=== PATIENT | female | born 1970 | race Hispanic/Latino ===

== ENCOUNTER 2017-12-22 08:53 | Emergency (ER) | payer OTHER ==
[2017-12-22 09:09] VITALS: RESP 18; TEMP 98.1
[2017-12-22 09:29] LABS: BASO # 0.1 K/uL (0.0-0.2); BASO % 1.3 % (0.0-2.0); EOS # 0.4 K/uL (0.0-0.7); EOS % 4.9 % (0.0-4.0); LYMPH # 3.5 K/uL (1.0-4.3); LYMPH % 39.3 % (20.0-40.0); MEAN CELL VOLUME 91.5 fL (81.0-99.0); MEAN CORPUSCULAR HEMOGLOBIN 31.5 pg (27.0-31.0); MEAN CORPUSCULAR HGB CONC 34.4 g/dL (33.0-37.0); MEAN PLATELET VOLUME 8.3 fL (7.2-11.7); MONO # 0.5 K/uL (0.0-0.8); MONO % 5.6 % (0.0-10.0); NEUT # 4.4 K/uL (1.8-7.0); NEUT % 48.9 % (50.0-75.0); RBC 4.45 Mil/uL (3.80-5.20); WHITE BLOOD COUNT 8.9 K/uL (4.8-10.8)
[2017-12-22 09:31] LABS: HCG,QUALITATIVE URINE NEGATIVE (NEGATIVE)
[2017-12-22 09:38] LABS: SQUAMOUS EPITHIAL 1 /hpf (0-5); URINE BACTERIA RARE (<OCC); URINE BILIRUBIN NEGATIVE (NEGATIVE); URINE BLOOD NEGATIVE (NEGATIVE); URINE CLARITY Clear (Clear); URINE COLOR Yellow (YELLOW); URINE GLUCOSE (UA) NORMAL (Normal); URINE LEUKOCYTE ESTERASE 1+ Leu/uL (Negative); URINE PROTEIN NEGATIVE (NEGATIVE); URINE UROBILINOGEN NORMAL mg/dL (0.2-1.0)
[2017-12-22 09:46] LABS: ALB/GLOB RATIO 1.5 (1.0-2.1); ALBUMIN 4.6 g/dL (3.5-5.0); ALT/SGPT 106 U/L (9-52); AST/SGOT 71 U/L (14-36); BLOOD UREA NITROGEN 19 mg/dL (7-17); CALCIUM 9.7 mg/dl (8.6-10.4); GFR AFRICAN-AMERICAN > 60; GFR NON-AFRICAN AMERICAN > 60; HDL CHOLESTEROL 47 mg/dL (30-70)
--- NOTE | 2017-12-22 09:50 | RAD ---
Date of service: 12/22/2017 PROCEDURE: CHEST RADIOGRAPH, 1 VIEW HISTORY: hypertension COMPARISON: None available. FINDINGS: LUNGS: No acute pulmonary disease appreciated bilaterally. PLEURA: No pneumothorax or pleural fluid seen. CARDIOVASCULAR: Normal. OSSEOUS STRUCTURES: No significant abnormalities. VISUALIZED UPPER ABDOMEN: Normal. OTHER FINDINGS: None. IMPRESSION: No acute cardiopulmonary disease appreciated.
[2017-12-22 09:56] LABS: CK-MB 0.57 ng/mL (0.0-3.38)
[2017-12-22 09:57] LABS: LDL CHOLESTEROL 181 mg/dL (0-129)
--- NOTE | 2017-12-22 10:21 | C.PDOC ---
History Of Present Illness 47 y/o female, overnight nurse in ER, presents to the ER for evaluation of elevated blood pressure. Patient states that she went for a routine visit to her PMD, 's office today and she was found to have systolic pressure over 200. advised her to go the ER. Patient reports that her blood pressure was elevated during her previous visits to 's office. Dr. Marks had prescribed her Lisinopril. However, she stopped taking the medication because it made her blood pressure levels too low. Currently, patient denies having active physical complaints. Time Seen by Provider: 12/22/17 08:54 Chief Complaint (Nursing): High Blood Pressure History Per: Patient History/Exam Limitations: no limitations Onset/Duration Of Symptoms: Hrs Current Symptoms Are (Timing): Still Present Severity: Moderate Past Medical History Reviewed: Historical Data, Nursing Documentation, Vital Signs Vital Signs: Last Vital Signs Temp 98.1 F 12/22/17 08:59 Pulse 65 12/22/17 11:03 Resp 18 12/22/17 11:03 BP 165/100 H 12/22/17 11:03 Pulse Ox 99 12/22/17 11:27 - Medical History PMH: Migraine Surgical History: No Surg Hx Family History: States: No Known Family Hx - Social History Hx Tobacco Use: Yes Hx Alcohol Use: Yes Hx Substance Use: No - Immunization History Hx Tetanus Toxoid Vaccination: Yes Physical Exam - Physical Exam Appears: Non-toxic, No Acute Distress Skin: Normal Color, Warm, Dry Head: Atraumatic, Normacephalic Eye(s): bilateral: Normal Inspection Nose: Normal Oral Mucosa: Moist Neck: Supple Chest: Symmetrical Cardiovascular: Rhythm Regular Respiratory: Normal Breath Sounds, No Rales, No Rhonchi, No Wheezing Gastrointestinal/Abdominal: Normal Exam, Soft, No Tenderness, No Guarding, No Rebound Neurological/Psych: Oriented x3, Normal Speech ED Course And Treatment - Laboratory Results Result Diagrams: 12/22/17 09:24 12/22/17 09:24 ECG: Interpreted By Me, Viewed By Me ECG Rhythm: Sinus Rhythm Interpretation Of ECG: NSR with normal axises and [address] depressions in Leads I , II, avF, V5, and V6 Rate From EC O2 Sat by Pulse Oximetry: 99 (RA) Pulse Ox Interpretation: Normal - Radiology CXR: Interpreted by Me, Viewed By Me CXR Interpretation: Yes: No Acute Disease Progress Note: Labs,UA, ECG, and CXR ordered. Disposition Counseled Patient/Family Regarding: Diagnosis, Need For Followup, Rx Given - Disposition Referrals: Gisselle Marks MD [Staff Provider] - Disposition: HOME/ ROUTINE Disposition Time: 10:55 Condition: STABLE Additional Instructions: FOLLOW UP WITH DR MARKS IN 1-2 DAYS USE MEDICATIONS DIRECTED RETURN TO ER IF YOU HAVE ANY CONCERNING SYMPTOMS Prescriptions: Carvedilol [Coreg] 3.125 mg PO BID #60 tab Instructions: High Blood Pressure (DC) Forms: [email or web address] ([employer]) Print Language: MAORI - Clinical Impression Clinical Impression: Hypertension, EKG, abnormal - Scribe Statement The provider has reviewed the documentation as recorded by the Lenoraibjag Concepcion Provider Attestation: All medical record entries made by the Scribe were at my direction and personally dictated by me. I have reviewed the chart and agree that the record accurately reflects my personal performance of the history, physical exam, medical decision making, and the department course for this patient. I have also personally directed, reviewed, and agree with the discharge instructions and disposition.
[2017-12-22 11:04] VITALS: BP 165/100; PULSE 65
[2017-12-22 11:24] VITALS: O2SAT 99
== END 2017-12-22 11:03 | disposition home or self-care (01) ==
LOC: C.ER 08:53
DX: I10 Essential (primary) hypertension (principal); R94.31 Abnormal electrocardiogram [ECG] [EKG]

== ENCOUNTER 2018-05-27 07:59 | Outpatient (CLI) | payer OTHER | END 2018-05-27 08:00 | disposition home or self-care (01) | LOC: C.MRIC 07:59 ==

== ENCOUNTER 2018-06-24 12:23 | Outpatient (CLI) | payer OTHER | END 2018-06-24 12:24 | disposition home or self-care (01) | LOC: C.RADH 12:23 ==

== ENCOUNTER 2018-06-24 12:30 | Outpatient (CLI) | payer OTHER | END 2018-06-24 12:31 | disposition home or self-care (01) | LOC: C.LAB 12:30 | DX: G61.1 Serum neuropathy (principal); G59 Mononeuropathy in diseases classified elsewhere ==

== ENCOUNTER 2018-07-01 09:59 | Outpatient (CLI) | payer OTHER | END 2018-07-01 10:00 | disposition home or self-care (01) | LOC: C.DEXAIC 10:00 ==

== ENCOUNTER 2018-07-09 08:55 | Outpatient (CLI) | payer OTHER | END 2018-07-09 08:56 | disposition home or self-care (01) | LOC: C.CTH 08:55 ==

== ENCOUNTER → 2018-08-05 | Outpatient (CLI) | payer OTHER | LOC: C.RADH 10:20 ==